=== PATIENT | female | born 1995 | race Caucasian/White ===

== ENCOUNTER 2019-10-18 16:30 | Emergency (ER) | payer OTHER, SELFPAY ==
[2019-10-18 16:34] VITALS: BP 135/88; PULSE 110; RESP 22; TEMP 36.6; O2SAT 100
--- NOTE | 2019-10-18 16:39 | ED.EXTPRO ---
HPI - Extremity Problem General Chief complaint: Wound/Laceration Stated complaint: lac to right wrist Time Seen by Provider: 10/18/19 16:31 Source: patient Mode of arrival: ambulatory Limitations: no limitations History of Present Illness HPI Narrative: Patient is a 23-year-old female who presents to emergency department with laceration of the right wrist patient was cleaning a knife when she lacerated the wrist has since had mild aching pain with slight swelling and discomfort patient is unsure to her tetanus status patient has not taken anything for her symptoms presents to emergency department in no distress. Patient denies radicular symptoms or paresthesias and notes that her tetanus is not up-to-date Related Data Home Medications Medication Instructions Recorded Confirmed No Home Medications 10/18/19 10/18/19 Allergies Allergy/AdvReac Type Severity Reaction Status Date / Time No Known Allergies Allergy Unverified 12/10/17 15:07 Review of Systems Review of Systems: Narrative: CONSTITUTIONAL: Denies fever, chills, or sweats. SKIN: Denies rash or itching. Laceration of the right wrist MUSCULOSKELETAL: Denies back pain, joint pain, or myalgia. NEUROLOGIC: Denies headache, numbness, dizziness, or weakness. [facility] Social History Social History (Updated 10/18/19 @ 16:41 by Kendall Virk PA-C) Smoking status: Current every day smoker Gender identity (if verbalized by the patient): Female Exam Narrative: Exam Narrative: GENERAL: Well-appearing, well-nourished, and in no acute distress. HEAD: Normocephalic, atraumatic. EYES: PERRLA and EOMI. ENT: Nares clear, no rhinorrhea or epistaxis. Mucous membranes moist. EXTREMITIES: Normal range of motion. No edema. 1 cm superficial flap laceration of the volar surface of the right wrist radial aspect SKIN: Warm, dry, no rash. NEURO: No focal deficits. Alert and oriented x3. Neurovascularly intact PSYCH: Normal mood and affect. Course Course Emergency Course: Patient in the room in no distress aware of case findings treatment plan and diagnosis agreeing to follow-up as directed Vital Signs Vital signs: Vital Signs Temperature 97.8 F 10/18/19 16:34 Pulse Rate 110 H 10/18/19 16:34 Respiratory Rate 22 H 10/18/19 16:34 Blood Pressure 135/88 10/18/19 16:34 Pulse Oximetry 100 10/18/19 16:34 Temperature 97.8 F 10/18/19 16:34 Pulse Rate 110 H 10/18/19 16:34 Respiratory Rate 22 H 10/18/19 16:34 Blood Pressure 135/88 10/18/19 16:34 Pulse Oximetry 100 10/18/19 16:34 Procedures Laceration Laceration 1: Date: 10/18/19 Time: 17:25 Site: upper extremity Size (cm): 1.5 Description: flap Depth: simple, single layer Local Anesthetic: other anesthetic Pre-repair: wound explored and irrigated ====== Skin Level ====== Skin layer closed with: michael Number of sutures: 2 ====== Subcutaneous Layer ====== ====== Muscle Layer ====== ====== Tendon Layer ====== MDM - Extremity (Nontraumatic) MDM Narrative Medical decision making narrative: Patients injury or pain is consistent with musculoskeletal etiology. No signs of neurological or vascular compromise on exam. Compartments and tisues are soft without signs of compartment syndrome. Pain is felt appropriate for further evaluation on an outpatient basis. Discharge Plan Discharge Clinical Impression: Laceration of wrist, right Patient Disposition: Home, Self-Care Condition: Stable Instructions: Antibiotic Form, Laceration (ED) Additional Instructions: Keep wound clean and dry. Do not soak, take baths, or swim until wound is completely healed. If any signs of infection such as redness, swelling, increasing pain, drainage of purulent discharge, streaks up your extremity develop, seek medical attention immediately. Followup with your primary care provider in [7] days for suture removal.
[2019-10-18] MEDS: TETANUS,DIPHTHERIA,AC PERTUSSIS ADULT (0.5 ML) BOOSTRIX IM (16:44)
[2019-10-18 17:41] VITALS: BP 122/60; PULSE 80; RESP 20; O2SAT 99
== END 2019-10-18 17:42 | disposition home or self-care (01) ==
PROVIDERS: Emergency Provider Emergency Medicine; PCP Internal Medicine
DX: S61.511A Laceration without foreign body of right wrist, initial encounter (principal); W26.0XXA Contact with knife, initial encounter; Z23 Encounter for immunization; F17.200 Nicotine dependence, unspecified, uncomplicated
CPT/HCPCS: 12001; 90471; 90715; 99282